=== PATIENT | male | born 1960 | race Caucasian/White ===

== ENCOUNTER 2019-09-10 07:21 | Inpatient (IN) | payer MEDICAID ==
[2019-09-10] VITALS (17 sets, daily range): BP systolic 99–135; BP diastolic 70–91
[~2019-09-10] VITALS: Ht 190.5 cm; Wt 65.8 kg
[~2019-09-10 07:21] MED LIST: BISA10SU60 RC; FOLIC ACID; MAGN400O6 PO; MULT-1085 PO; NA P133E4 RC; OXYC5CAP19 PO; PANT-47 PO; THIA50TA10 PO; TRAM50TA2 PO; cefazolin/dext.iso 2gm/100ml 100 ML IV ONE; famotidine 20mg tablet PO ONE; ringers solution, lacted 1,000 ML IV SCH; vancomycin/NS 1 GM ADD-VANTAGE 250 ML X 1 DOSE IV ONE
[2019-09-10 08:40] LABS: BASOPHILS # (AUTO) 0.1 X10'3 (0-0.2); BASOPHILS % (AUTO) 1.2 % (0-1); EOSINOPHILS # (AUTO) 0.2 X10'3 (0-0.9); EOSINOPHILS % (AUTO) 3.6 % (0-6); LYMPHOCYTES # (AUTO) 1.2 X10'3 (1.1-4.8); LYMPHOCYTES % (AUTO) 24.2 % (21-51); MEAN CORPUSCULAR HGB CONC 32.5 g/dL (33.0-36.5); MEAN CORPUSCULAR VOLUME 98.5 FL (78-98); MEAN PLATELET VOLUME 8.4 FL (7.4-10.4); MONOCYTES # (AUTO) 0.7 X10'3 (0-0.9); MONOCYTES % (AUTO) 13.6 % (2-12); NEUTROPHILS # (AUTO) 2.8 X10'3 (1.8-7.7); NEUTROPHILS % (AUTO) 57.4 % (42-75); PRE OP HEMATOCRIT 46.2 % (42.0-52.0); PRE OP PLATELET COUNT 165 X10'3 (140-440); RED BLOOD COUNT 4.69 X10'6 (4.70-6.10); RED CELL DISTRIBUTION WIDTH 14.8 % (11.5-14.5)
[2019-09-10 08:58] LABS: PRE OP INR 1.2 INR; PRE OP PROTIME 12.4 SECONDS (9.0-12.0)
[2019-09-10] MEDS ORDERED: ROPIVAcaine 0.5% (5mg/ml) 30ml vial ONE ×2 (09:04→10:01)
[2019-09-10] MEDS ORDERED: ketorolac trometh. 30mg/ml inj. ONE (09:04)
[2019-09-10 09:06] LABS: ALBUMIN 2.9 G/DL (3.4-5.0); ALBUMIN/GLOBULIN RATIO 0.5 (1.1-1.5); ALKALINE PHOSPHATASE 447 IU/L (46-116); BLOOD UREA NITROGEN 10 MG/DL (7-18); CALCIUM 8.8 MG/DL (8.5-10.1); CHLORIDE 102 MMOL/L (99-107); CREATININE 0.77 MG/DL (0.60-1.10); PRE OP ALT 34 U/L (30-65); PRE OP ANION GAP 8 (8-16); PRE OP AST 58 U/L (10-37); PRE OP BILIRUB, TOTAL 2.1 MG/DL (0.0-1.0); PRE OP GLUCOSE 112 MG/DL (70-104); PRE OP POTASSIUM 3.8 MMOL/L (3.4-5.1); PRE OP SODIUM 139 MMOL/L (135-145); TOTAL CARBON DIOXIDE 28.7 MMOL/L (24-32); TOTAL PROTEIN 8.2 G/DL (6.4-8.2); eGFR > 90 ML/MIN
[2019-09-10] MEDS ORDERED: fentaNYL/PF 50MCG/1 ML 2ML syringe ONE ×3 (10:00→11:55)
[2019-09-10] MEDS ORDERED: midazolam 2 mg/2 ml injection ONE ×2 (10:01→11:53)
[2019-09-10] MEDS ORDERED: propofol inj 20 ML IV ONE (10:01)
[2019-09-10] MEDS ORDERED: sevoflurane 250ml liquid IH ONE (10:09)
[2019-09-10] MEDS ORDERED: tranexamic acid inj. 1,000 MG in normal saline 100ml IV soln 100 ML IV ONE ×4 (10:10)
[2019-09-10] MEDS ORDERED: meperidine/PF 25mg/ml syringe IV PRN ×3 (11:50)
[2019-09-10] MEDS ORDERED: morphine 2 MG/ML inj. syringe IV PRN (11:50)
[2019-09-10] MEDS ORDERED: proCHLORperazine 10 MG/2 ml inj IV PRN (11:50)
[2019-09-10] MEDS ORDERED: morphine 4 MG/ML inj SYRINge IV PRN (11:50)
[2019-09-10] MEDS ORDERED: ondansetron/PF 4mg/2ml inj IV PRN ×2 (11:50→13:00)
[2019-09-10] MEDS ORDERED: ringers solution, lacted 1,000 ML IV SCH (11:50)
[2019-09-10] MEDS ORDERED: ROPIVAcaine 0.2% (10 MG/5 ML) BOLUS INJECTION INTERSCALE PRN (11:50)
[2019-09-10] MEDS ORDERED: metoprolol tartrate 1mg/ml inj IV ONE (12:00)
[2019-09-10] MEDS ORDERED: LORazepam 2 mg/ml vial IV PRN (13:00)
[2019-09-10] MEDS ORDERED: diphenhydrAMINE 25mg capsule PO PRN ×2 (13:00)
[2019-09-10] MEDS ORDERED: dextrose 50%-water 50ml dispensing syringe IV PRN (13:00)
[2019-09-10] MEDS ORDERED: non-formulary drug (Na Phos,M-B/Na Phos,Di-Ba* (Fleet's Enema*) 1 BOTTLE) RC PRN (13:00)
[2019-09-10] MEDS ORDERED: bisacodyl 10mg suppository rectal RC PRN (13:00)
[2019-09-10] MEDS ORDERED: HYDROmorphone inj. 0.5 MG/0.5 ML DISP.SYRIN IV PRN (13:00)
[2019-09-10] MEDS ORDERED: acetaminophen 325mg tablet PO PRN (13:00)
[2019-09-10] MEDS ORDERED: non-formulary drug (Oxycodone HCl 2 CAP) PO PRN (13:00)
[2019-09-10] MEDS ORDERED: magnesium hydroxide 30ml (MOM) UD suspension PO PRN ×2 (13:00)
[2019-09-10] MEDS ORDERED: haloperidol 5mg tablet PO PRN (13:00)
[2019-09-10] MEDS ORDERED: traMADol 50MG tablet PO PRN (13:00)
[2019-09-10] MEDS ORDERED: haloperidol lactate 5mg/ml inj IM PRN (13:00)
[2019-09-10] MEDS ORDERED: thiamine 100mg/ml 2ml inj. IV ONE (13:00)
--- NOTE | 2019-09-10 13:00 | NUR ---
Received from OR via ORTHO BED WITH FLDONNA , accompanied by Anesthesiologist PRASANNA and report given by Anesthesiolgist. PATIENT WITH 20G PIV IN RIGHT UE RUNNING LR AT 100. ANTERIOR LEFT SHOUDLER DRESSING IS CDI IN SLING AND POWDER PACK PRESENT. + RADIAL PULSE PRESNET. DONNED SCDS UPON ARRIVAL. VSS. Addendum: 09/10/19 at 1307 by Colin Flowers RN, RN Amended: Links added.
[2019-09-10] MEDS: ROPIVAcaine 0.2%/PF PUMP/bolus 550 ML INTERSCALE SCH (13:08)
--- NOTE | 2019-09-10 13:29 | NUR ---
received report from chris persaud
[2019-09-10] MEDS ORDERED: thiamine inj. 100 MG in normal saline 100ml IV soln 99 ML IV ONE (13:55)
[2019-09-10] MEDS: acetaminophen 325mg tablet PO SCH ×2 (14:00→21:28)
--- NOTE | 2019-09-10 14:00 | NUR ---
Patient has met criteria for transfer to floor. Patient vss. Pain at a tolerable level. Transferred via bed to room where they were hooked to vitals and RN notified patient has arrived. Bed low, call light within reach, 2-3 rails up, vss, belongings placed in room. Care turned over to NATHAN TYSON- WHO WAS PRESNET TO ACCEPT CARE OF PATIENT. DENIES PAIN AT THIS TIME. Addendum: 09/10/19 at 1405 by Colin Doe - NATHAN EVANS Amended: Links added.
--- NOTE | 2019-09-10 14:55 | NUR ---
Malnutrition consult: 2-13 pound loss. Pt s/p L humerus fx repair just returned to floor from OR recently. Has not had PO meal yet. No weakness noted outside of surgical area per EMR. Current wt 65.8kg scaled and no prior admits to compare wt hx to. Pt has no edema. At this time further information required to determine malnutrition status; will monitor for additional criteria and protein needs pending PO hx post-op. Addendum: 09/10/19 at [address] Amended: Links added.
[2019-09-10] MEDS: ceFAZolin 1GM/D5W- ADD-VANTAGE 50 ML IV SCH ×2 (15:26→23:59)
--- NOTE | 2019-09-10 15:29 | NUR ---
COMPUTER SCANNER NOT WORKING, CHECKING ALL MEDS PRIOR TO ADMIN, CONTINUE TO MONITOR
[2019-09-10] MEDS ORDERED: tranexamic acid inj. 660 MG in normal saline 100ml IV soln 100 ML IV ONE (16:00)
[2019-09-10] MEDS: HYDROmorphone 1 mg/ml syringe IV PRN (16:33)
--- NOTE | 2019-09-10 18:10 | NUR ---
Patient in room ORTHO 4006. I have received report from Cris EVANS and had the opportunity to ask questions and assume patient care.
--- NOTE | 2019-09-10 18:24 | NUR ---
gave report to chris davis
[2019-09-10] MEDS ORDERED: vancomycin/NS 1 GM ADD-VANTAGE 250 ML IV SCH (20:00)
[2019-09-10] MEDS: potassium cl 20mEq in 1/2 NS 1,000 ML IV SCH ×2 (20:59→23:30)
[2019-09-10] MEDS: sennosides 8.6mg tablet PO SCH (21:27)
[2019-09-10] MEDS: pantoprazole 40mg Tablet.DR PO SCH (21:28)
[2019-09-11] MEDS: acetaminophen 325mg tablet PO SCH ×4 (01:46→19:25)
[2019-09-11 02:00] VITALS: BP 116/78
--- NOTE | 2019-09-11 03:00 | NUR ---
Patient had output of 160 cc. Bladder scanned, no residual.
[2019-09-11] MEDS: potassium cl 20mEq in 1/2 NS 1,000 ML IV SCH ×3 (04:46→19:24)
[2019-09-11 05:57] LABS: BASOPHILS # (AUTO) 0.1 X10'3 (0-0.2); EOSINOPHILS # (AUTO) 0.1 X10'3 (0-0.9); EOSINOPHILS % (AUTO) 0.9 % (0-6); HEMATOCRIT 29.7 % (42.0-52.0); HEMOGLOBIN 9.8 g/dl (14.0-17.9); LYMPHOCYTES # (AUTO) 1.4 X10'3 (1.1-4.8); LYMPHOCYTES % (AUTO) 18.7 % (21-51); MEAN CORPUSCULAR HEMOGLOBIN 31.9 PG (27.0-31.0); MEAN CORPUSCULAR HGB CONC 32.9 g/dL (33.0-36.5); MEAN PLATELET VOLUME 8.8 FL (7.4-10.4); MONOCYTES # (AUTO) 1.2 X10'3 (0-0.9); MONOCYTES % (AUTO) 16.2 % (2-12); NEUTROPHILS # (AUTO) 4.7 X10'3 (1.8-7.7); NEUTROPHILS % (AUTO) 63.2 % (42-75); PLATELET COUNT 143 X10'3 (140-440); RED BLOOD COUNT 3.06 X10'6 (4.70-6.10); RED CELL DISTRIBUTION WIDTH 14.6 % (11.5-14.5); WHITE BLOOD COUNT 7.4 X10'3 (4.5-11.0)
[2019-09-11 06:00] VITALS: BP 114/72
--- NOTE | 2019-09-11 06:10 | NUR ---
Patient in room ORTHO 4006. I have received report from Darlene and had the opportunity to ask questions and assume patient care.
--- NOTE | 2019-09-11 06:24 | NUR ---
Problems reprioritized. Patient report given, questions answered & plan of care reviewed with Jenny EVANS.
[2019-09-11] MEDS: pantoprazole 40mg Tablet.DR PO SCH ×2 (07:12→19:25)
[2019-09-11] MEDS: multivitamins, therapeutics tablet PO SCH (07:12)
[2019-09-11] MEDS: folic acid 1mg tablet PO SCH (07:12)
[2019-09-11] MEDS: thiamine 100mg tablet PO SCH (07:13)
[2019-09-11] MEDS: oxyCODONE IR 5mg (immed. release) tablet PO PRN ×3 (07:14→21:52)
[2019-09-11] MEDS: bisacodyl 10mg suppository rectal RC SCH (07:17)
[2019-09-11 07:49] LABS: ANION GAP 9 (8-16); CHLORIDE 102 MMOL/L (99-107); POTASSIUM 4.5 MMOL/L (3.5-5.1); SODIUM 135 MMOL/L (135-145); TOTAL CARBON DIOXIDE 23.9 MMOL/L (24-32)
[2019-09-11] MEDS: aspirin 325mg tablet PO SCH (08:55)
[2019-09-11 10:00] VITALS: BP 120/75
[2019-09-11 14:00] VITALS: BP 112/71
--- NOTE | 2019-09-11 15:04 | NUR ---
Problems reprioritized. Patient report given, questions answered & plan of care reviewed with
--- NOTE | 2019-09-11 15:11 | NUR ---
Patient in room ORTHO 4006. I have received report from Jenny EVANS and had the opportunity to ask questions and assume patient care.
--- NOTE | 2019-09-11 15:53 | NUR ---
F/u for malnutrition consult: Pt documented as A/O x 2 today. Pt sleeping during attempted bedside visit however no apparent fat or muscle wasting visible. Pt currently on a regular diet documented with 50% PO intake x 1 meal. Pt currently lacks a minimum of two criteria for malnutrition. Will continue to follow and further assess for malnutrition during admission. Malnutrition consult: 2-13 pound loss. Pt s/p L humerus fx repair just returned to floor from OR recently. Has not had PO meal yet. No weakness noted outside of surgical area per EMR. Current wt 65.8kg scaled and no prior admits to compare wt hx to. Pt has no edema. At this time further information required to determine malnutrition status; will monitor for additional criteria and protein needs pending PO hx post-op. Addendum: 09/11/19 at [address] Amended: Links added.
[2019-09-11 18:00] VITALS: BP 109/68
--- NOTE | 2019-09-11 18:26 | NUR ---
Problems reprioritized. Patient report given, questions answered & plan of care reviewed with Jada EVANS.
--- NOTE | 2019-09-11 18:37 | NUR ---
Patient in room ORTHO 4006. I have received report from Yvonne EVANS and had the opportunity to ask questions and assume patient care.
[2019-09-11] MEDS: sennosides 8.6mg tablet PO SCH (21:00)
[2019-09-11 22:00] VITALS: BP 112/79
[2019-09-12] MEDS: acetaminophen 325mg tablet PO SCH ×2 (02:00→08:00)
[2019-09-12] MEDS: oxyCODONE IR 5mg (immed. release) tablet PO PRN ×3 (04:55→17:45)
[2019-09-12] MEDS: potassium cl 20mEq in 1/2 NS 1,000 ML IV SCH (04:59)
[2019-09-12 05:11] LABS: BASOPHILS # (AUTO) 0.1 X10'3 (0-0.2); EOSINOPHILS # (AUTO) 0.1 X10'3 (0-0.9); HEMATOCRIT 26.2 % (42.0-52.0); HEMOGLOBIN 8.7 g/dl (14.0-17.9); LYMPHOCYTES # (AUTO) 1.3 X10'3 (1.1-4.8); LYMPHOCYTES % (AUTO) 19.3 % (21-51); MEAN CORPUSCULAR HGB CONC 33.2 g/dL (33.0-36.5); MEAN CORPUSCULAR VOLUME 96.4 FL (78-98); MONOCYTES # (AUTO) 1.1 X10'3 (0-0.9); MONOCYTES % (AUTO) 15.9 % (2-12); NEUTROPHILS # (AUTO) 4.2 X10'3 (1.8-7.7); NEUTROPHILS % (AUTO) 61.8 % (42-75); PLATELET COUNT 100 X10'3 (140-440); RED BLOOD COUNT 2.72 X10'6 (4.70-6.10); RED CELL DISTRIBUTION WIDTH 13.9 % (11.5-14.5); WHITE BLOOD COUNT 6.7 X10'3 (4.5-11.0)
--- NOTE | 2019-09-12 05:52 | NUR ---
0445 MEDICATED PATIENT WITH OXY IR TO BE READY FOR THE MORNING AND PHYSICAL THERAPY. RATES PAIN 7/10 BUT REFUSES POWDER GIAN WHEN OFFERED TO REDUCE SWELLING. NO OTHER COMPLAINTS AT THIS TIME.
[2019-09-12 05:59] LABS: ANISOCYTOSIS 1+; PLATELET ESTIMATE DECREASED; TOTAL CELLS COUNTED 100
[2019-09-12 06:00] VITALS: BP 128/85
--- NOTE | 2019-09-12 06:00 | NUR ---
Patient in room ORTHO 4006. I have received report from Jada and had the opportunity to ask questions and assume patient care.
--- NOTE | 2019-09-12 06:27 | NUR ---
Problems reprioritized. Patient report given, questions answered & plan of care reviewed with ALEXANDER EVANS.
[2019-09-12] MEDS: bisacodyl 10mg suppository rectal RC SCH (07:58)
[2019-09-12] MEDS: thiamine 100mg tablet PO SCH (07:59)
[2019-09-12] MEDS: folic acid 1mg tablet PO SCH (07:59)
[2019-09-12] MEDS: pantoprazole 40mg Tablet.DR PO SCH ×2 (07:59→20:22)
[2019-09-12] MEDS: multivitamins, therapeutics tablet PO SCH (07:59)
[2019-09-12] MEDS: aspirin 325mg tablet PO SCH (08:00)
[2019-09-12 10:00] VITALS: BP 123/82
[2019-09-12] MEDS: ROPIVAcaine 0.2%/PF PUMP/bolus 550 ML INTERSCALE SCH (11:50)
[2019-09-12] MEDS ORDERED: LORazepam 1 MG tablet PO PRN (13:00)
[2019-09-12] MEDS ORDERED: LORazepam 2 mg/ml vial IV PRN (13:00)
--- NOTE | 2019-09-12 17:21 | NUR ---
Pt's left shoulder, upper arm and down through his forearm is very firm, uncomfortably so. Pt has good pulses, good cap refill and no discoloration. Called surgeon, no new orders received and he stated he would be coming in to see the patient.
[2019-09-12] MEDS: acetaminophen 325mg tablet PO PRN (17:44)
[2019-09-12 18:00] VITALS: BP 122/71
--- NOTE | 2019-09-12 18:05 | NUR ---
Problems reprioritized. Patient report given, questions answered & plan of care reviewed with Renetta.
--- NOTE | 2019-09-12 18:05 | NUR ---
Patient in room ORTHO 4006. I have received report from Jenny EVANS and had the opportunity to ask questions and assume patient care.
[2019-09-12] MEDS: sennosides 8.6mg tablet PO SCH (20:25)
[2019-09-12 22:00] VITALS: BP 109/72
[2019-09-13] MEDS: oxyCODONE IR 5mg (immed. release) tablet PO PRN ×5 (00:53→22:38)
[2019-09-13] MEDS: acetaminophen 325mg tablet PO PRN ×2 (05:04→18:56)
[2019-09-13 05:15] LABS: BASOPHILS # (AUTO) 0.1 X10'3 (0-0.2); BASOPHILS % (AUTO) 1.2 % (0-1); EOSINOPHILS # (AUTO) 0.1 X10'3 (0-0.9); EOSINOPHILS % (AUTO) 1.9 % (0-6); HEMATOCRIT 25.4 % (42.0-52.0); HEMOGLOBIN 8.5 g/dl (14.0-17.9); LYMPHOCYTES # (AUTO) 1.4 X10'3 (1.1-4.8); LYMPHOCYTES % (AUTO) 27.2 % (21-51); MEAN CORPUSCULAR HEMOGLOBIN 32.3 PG (27.0-31.0); MEAN CORPUSCULAR HGB CONC 33.6 g/dL (33.0-36.5); MEAN CORPUSCULAR VOLUME 96.2 FL (78-98); MEAN PLATELET VOLUME 9.2 FL (7.4-10.4); MONOCYTES # (AUTO) 0.8 X10'3 (0-0.9); MONOCYTES % (AUTO) 14.9 % (2-12); NEUTROPHILS # (AUTO) 2.9 X10'3 (1.8-7.7); NEUTROPHILS % (AUTO) 54.8 % (42-75); PLATELET COUNT 104 X10'3 (140-440); RED BLOOD COUNT 2.64 X10'6 (4.70-6.10); RED CELL DISTRIBUTION WIDTH 13.7 % (11.5-14.5); WHITE BLOOD COUNT 5.3 X10'3 (4.5-11.0)
[2019-09-13 06:00] VITALS: BP 128/86
--- NOTE | 2019-09-13 06:11 | NUR ---
Problems reprioritized. Patient report given, questions answered & plan of care reviewed with Julisa EVANS.
--- NOTE | 2019-09-13 06:14 | NUR ---
Patient in room ORTHO 4006. I have received report from NATHAN Jackson and had the opportunity to ask questions and assume patient care.
[2019-09-13] MEDS: bisacodyl 10mg suppository rectal RC SCH (07:44)
[2019-09-13] MEDS: multivitamins, therapeutics tablet PO SCH (07:55)
[2019-09-13] MEDS: aspirin 325mg tablet PO SCH (07:55)
[2019-09-13] MEDS: pantoprazole 40mg Tablet.DR PO SCH ×2 (07:55→20:14)
[2019-09-13] MEDS: thiamine 100mg tablet PO SCH (07:55)
[2019-09-13] MEDS: folic acid 1mg tablet PO SCH (07:55)
[2019-09-13] MEDS: HYDROmorphone 1 mg/ml syringe IV PRN (07:56)
[2019-09-13 10:05] VITALS: BP 133/94
[2019-09-13 18:00] VITALS: BP 111/77
--- NOTE | 2019-09-13 18:28 | NUR ---
Problems reprioritized. Patient report given, questions answered & plan of care reviewed with NATHAN De Leon.
--- NOTE | 2019-09-13 18:30 | NUR ---
Patient in room ORTHO 4006. I have received report from Julisa EVANS and had the opportunity to ask questions and assume patient care.
[2019-09-13] MEDS: sennosides 8.6mg tablet PO SCH (20:14)
[2019-09-13 22:00] VITALS: BP 108/73
--- NOTE | 2019-09-14 | NUR ---
Patient has been refusing to put ice on his left shoulder. I explained to him that it will help with the pain and swelling but he said he does not want the ice. His left arm/shoulder has mild swelling. When pt was getting up from the chair to get into bed he was putting a lot of pressure onto his left shoulder and I explained to him to push up and put weight on his right shoulder instead. I noticed when I went into the room to check on the patient he would be lying on his left shoulder at times, explained to pt to not put so much weight on his left shoulder. Offered ice packs multiple times. Pt says ice does not help with the pain. Plan is for pt to DC to rehab.
[2019-09-14] MEDS: oxyCODONE IR 5mg (immed. release) tablet PO PRN ×2 (02:25→08:13)
[2019-09-14 06:00] VITALS: BP 109/76
--- NOTE | 2019-09-14 06:45 | NUR ---
Problems reprioritized. Patient report given, questions answered & plan of care reviewed with Sarah EVANS.
[2019-09-14] MEDS: bisacodyl 10mg suppository rectal RC SCH (08:00)
[2019-09-14] MEDS: multivitamins, therapeutics tablet PO SCH (08:14)
[2019-09-14] MEDS: pantoprazole 40mg Tablet.DR PO SCH (08:14)
[2019-09-14] MEDS: aspirin 325mg tablet PO SCH (08:14)
[2019-09-14] MEDS: thiamine 100mg tablet PO SCH (08:14)
[2019-09-14] MEDS: folic acid 1mg tablet PO SCH (08:14)
[2019-09-14 10:00] VITALS: BP 113/71
[2019-09-14] MEDS: ROPIVAcaine 0.2%/PF PUMP/bolus 550 ML INTERSCALE SCH (11:57)
[2019-09-14] MEDS ORDERED: LORazepam 2 mg/ml vial IV PRN (13:00)
[2019-09-14] MEDS ORDERED: LORazepam 1 MG tablet PO PRN (13:00)
== END 2019-09-14 15:02 | DRG 315 ==
LOC: PAS IN 07:21 → UNDOADMIN 07:21 → EDSTATUS 10:00 → PAS IN 12:59 → ORTHO 4S 14:38 → PAS IN 14:38
PROVIDERS: ADMIT Orthopaedic Surgery; ATTEND Orthopaedic Surgery
PROC: 0LS40ZZ Reposition Left Upper Arm Tendon, Open Approach (ICD-10-PCS; 2019-09-10)
PROC: 0RRK00Z Replacement of Left Shoulder Joint with Reverse Ball and Socket Synthetic Substitute, Open Approach (ICD-10-PCS; principal; 2019-09-10 10:09)
DX: S42.242A 4-part fracture of surgical neck of left humerus, initial encounter for closed fracture (principal); D62 Acute posthemorrhagic anemia; D69.6 Thrombocytopenia, unspecified; I48.91 Unspecified atrial fibrillation; J44.9 Chronic obstructive pulmonary disease, unspecified; K21.9 Gastro-esophageal reflux disease without esophagitis; W18.39XA Other fall on same level, initial encounter; Y93.89 Activity, other specified; Y92.89 Other specified places as the place of occurrence of the external cause; Y99.8 Other external cause status
CPT/HCPCS: 36415; 71046; 80051; 80053; 85025; 85610; 85730; 87081; 93005; 97110; 97116; 97161; 97530; A4565; A4618; A7000; C1776; G0378; J0690; J1170; J1885; J2060; J2250; J2704; J2795; J3010; J3370; J3411; J3480; J3490; J7120

== ENCOUNTER 2020-11-10 11:34 | Emergency (ER) | payer MEDICAID ==
[~2020-11-10 11:34] MED LIST changes: +amiodarone 50MG/ML inj IV ONE; -cefazolin/dext.iso 2gm/100ml 100 ML IV ONE; +epiNEPHrine 0.1mg/ml 10ml syringe ONE; -famotidine 20mg tablet PO ONE; -ringers solution, lacted 1,000 ML IV SCH; +sod chloride 0.9% 10ml flush syringe IV ONE; -vancomycin/NS 1 GM ADD-VANTAGE 250 ML X 1 DOSE IV ONE
--- NOTE | 2020-11-10 11:47 | NUR ---
See code form charting.
--- NOTE | 2020-11-10 11:51 | NUR ---
Attempted to call Rich, patients roommate, at which number was disconnected. Addendum: 11/10/20 at [address] Calzada aware of inability to contact family.
--- NOTE | 2020-11-10 12:43 | NUR ---
Donor network notified at 1206, spoke with Teresa boswell. Reference # [id number] Spoke with Intelligence Research Specialist, Ralph Saavedra at 1231. Ralph Cheyennegarrett stated that he would be coming to retrieve body within the hour, requesting to have any blood drawn available upon their arrival. Spoke with Lab, who stated they would keep blood refrigerated until they arrive. I will go to lab to retrieve blood when sample clerk arrives. Addendum: 11/10/20 at [address] Calzada aware of marketing professor case.
--- NOTE | 2020-11-10 13:05 | NUR ---
Belongings list placed in chart and signed by 2 RNs.
== END 2020-11-10 13:05 | disposition expired ==
LOC: ER 11:35
DX: T71.161A Asphyxiation due to hanging, accidental, initial encounter (principal); I46.9 Cardiac arrest, cause unspecified
CPT/HCPCS: 92950; 94799; 99285; J0171; 94760